=== PATIENT | male | born 1955 | race Caucasian/White ===

== ENCOUNTER 2017-07-02 19:02 | Emergency (ER) | payer OTHER ==
[~2017-07-02] VITALS: Ht 180.3 cm; Wt 86.3 kg
[2017-07-02 19:21] VITALS: BP 162/106; PULSE 121; RESP 18; TEMP 99; O2SAT 94
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
[2017-07-02] MEDS ORDERED: SODIUM CHLOR 0.9% 1000 ML INJ 1,000 ML IV ONE (19:30)
[2017-07-02] MEDS ORDERED: BACITRACIN TOP OINT 15 GM TUBE TOPICAL ONE (19:30)
[2017-07-02] MEDS ORDERED: TETANUS/DIPHTHERIA TOXOID ADULT 0.5 ML VIAL IM ONE (19:30)
[2017-07-02 20:03] VITALS: BP 172/97; PULSE 103; RESP 18; O2SAT 95
[2017-07-02] MEDS ORDERED: MORPHINE SULFATE 2 MG/ML INJ IV PUSH ONE (20:15)
[2017-07-02 20:16] LABS: AUTOMATED NEUTROPHIL # 11.9 TH/MM3 (1.8-7.7); BASOPHIL # 0.1 TH/MM3 (0-0.2); BASOPHIL % 0.6 % (0.0-2.0); EOSINOPHIL # 0.1 TH/MM3 (0-0.4); EOSINOPHIL % 0.4 % (0.0-4.0); HEMATOCRIT 40.7 % (39.0-51.0); HEMOGLOBIN 13.9 GM/DL (13.0-17.0); LYMPH % 15.5 % (9.0-44.0); LYMPHOCYTE # 2.4 TH/MM3 (1.0-4.8); MEAN CELL VOLUME 95.6 FL (80.0-100.0); MEAN CORPUSCULAR HEMOGLOBIN 32.7 PG (27.0-34.0); MEAN CORPUSCULAR HGB CONC 34.2 % (32.0-36.0); MEAN PLATELET VOLUME 8.3 FL (7.0-11.0); MONO % 6.7 % (0.0-8.0); NEUT % 76.8 % (16.0-70.0); PLATELET COUNT 323 TH/MM3 (150-450); RED BLOOD COUNT 4.26 MIL/MM3 (4.50-5.90); RED CELL DISTRIBUTION WIDTH 13.7 % (11.6-17.2); WHITE BLOOD COUNT 15.4 TH/MM3 (4.0-11.0)
[2017-07-02 20:27] LABS: BICARBONATE 21.8 MEQ/L (21.0-32.0); CALCIUM 8.4 MG/DL (8.5-10.1)
[2017-07-02 20:31] LABS: CREATININE 0.95 MG/DL (0.60-1.30); PROTHROMBIN TIME - PATIENT 10.4 SEC (9.8-11.6)
[2017-07-02] MEDS ORDERED: LIDOCAINE HCL 1% PF 30 ML VIAL ONE (20:44)
[2017-07-02] MEDS ORDERED: LIDOCAINE HCL 1% 20 ML VIAL INFIL ONE (20:45)
[2017-07-02] MEDS ORDERED: IOHEXOL 350 MG/ML 10 ML VIAL (for RAD DIAG) IVCONTRAST ONE (21:21)
[2017-07-02 21:22] VITALS: BP 173/92; PULSE 113; RESP 18; O2SAT 96
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
[2017-07-02] MEDS ORDERED: MORPHINE SULFATE 4 MG/ML INJ IV PUSH ONE (22:45)
[2017-07-02] MEDS ORDERED: SILVER SULFADIAZINE 1% CR 50 GM JAR TOPICAL ONE (22:45)
[2017-07-02] MEDS ORDERED: SULFAMETHOXAZOLE-TRIMETHOPRIM DS 800-160 MG TAB PO ONE (23:00)
[2017-07-02] MEDS ORDERED: BACT800T5 PO (23:30)
[2017-07-02] MEDS ORDERED: HYDR-3516 PO (23:30)
[2017-07-03 00:01] VITALS: BP 101/71
== END 2017-07-03 00:03 | disposition home or self-care (01) ==
LOC: PHED 19:02
DX: S62.231A Other displaced fracture of base of first metacarpal bone, right hand, initial encounter for closed fracture (principal); S01.112A Laceration without foreign body of left eyelid and periocular area, initial encounter; S01.20XA Unspecified open wound of nose, initial encounter; S40.212A Abrasion of left shoulder, initial encounter; S80.212A Abrasion, left knee, initial encounter; S60.512A Abrasion of left hand, initial encounter; S50.312A Abrasion of left elbow, initial encounter; S50.311A Abrasion of right elbow, initial encounter; V22.9XXA Unspecified motorcycle rider injured in collision with two- or three-wheeled motor vehicle in traffic accident, initial encounter; Z23 Encounter for immunization
CPT/HCPCS: 12011; 29130; 70450; 70486; 71260; 72125; 73070; 73120; 74177; 80048; 85025; 85610; 85730; 90471; 90714; 96361; 96374; 96376; 99285; J2270; J7030; L3808; Q9967